=== PATIENT | female | born 1975 | race Two or more races ===

== ENCOUNTER 2020-11-13 23:32 | Emergency (ER) | payer OTHER ==
[~2020-11-13] VITALS: Ht 149.9 cm; Wt 76.7 kg
[2020-11-14] MEDS ORDERED: ZOLOFT25 MG (00:25)
[2020-11-14] MEDS ORDERED: NORVASC5 MG (00:26)
[2020-11-14] MEDS ORDERED: AMOX1TAB5 PO (02:35)
[2020-11-14] MEDS ORDERED: INTESTINEX680 M1 PO (02:35)
[2020-11-14] MEDS ORDERED: NAPROXEN375 MG PO (02:35)
== END 2020-11-14 03:58 | disposition home or self-care (01) ==
LOC: ER 23:32
DX: S01.111A Laceration without foreign body of right eyelid and periocular area, initial encounter (principal); W54.0XXA Bitten by dog, initial encounter; Y93.89 Activity, other specified; Y92.018 Other place in single-family (private) house as the place of occurrence of the external cause; Y99.8 Other external cause status

== ENCOUNTER 2021-07-14 18:40 | Emergency (ER) | payer OTHER ==
[~2021-07-14] VITALS: Ht 152.4 cm; Wt 74.8 kg
[~2021-07-14 18:40] MED LIST: AMOX1TAB5 PO; INTESTINEX680 M1 PO; NAPROXEN375 MG PO; NORVASC5 MG; ZOLOFT25 MG
[2021-07-15] MEDS ORDERED: INTESTINEX680 M1 PO (01:14)
[2021-07-15] MEDS ORDERED: PEPCID40 MG PO (01:14)
[2021-07-15] MEDS ORDERED: CEPHALEXIN500 MG PO (01:14)
[2021-07-15] MEDS ORDERED: ZOFRAN8 MG PO (01:14)
== END 2021-07-15 01:21 ==
LOC: ER 18:40
DX: N39.0 Urinary tract infection, site not specified (principal); E86.0 Dehydration; K52.9 Noninfective gastroenteritis and colitis, unspecified